=== PATIENT | female | born 1955 | race Hispanic/Latino ===

== ENCOUNTER 2017-11-09 16:09 | Emergency (ER) | payer OTHER ==
[2017-11-09] MEDS ORDERED: ONDANSETRON HCL 4 MG/2 ML VIAL ONE (17:03)
[2017-11-09] MEDS ORDERED: MECLIZINE HCL 25 MG TABLET ONE (17:03)
[2017-11-09 17:21] LABS: BASOPHILS % (AUTO) 0.7 % (0.0-5.0); EOSINOPHILS % (AUTO) 0.3 % (0.0-8.0); HEMATOCRIT 38.8 % (36-48); LYMPHOCYTES % (AUTO) 14.8 % (21.0-51.0); MEAN CORPUSCULAR HEMOGLOBIN 30.3 pg (27.0-33.0); MONOCYTES % (AUTO) 3.8 % (3.0-13.0); NEUTROPHILS % (AUTO) 80.4 % (40.0-77.0); PLATELET COUNT (AUTO) 246 K/uL (130-400); RED BLOOD CELL COUNT(AUTO) 4.36 MIL/uL (4.00-5.50); RED CELL DISTRIBUTION WIDTH 13.1 % (11.0-15.5); WHITE BLOOD COUNT (AUTO) 8.3 K/uL (4.8-10.8)
[2017-11-09 17:26] LABS: INR 0.89 (0.85-1.15); PARTIAL THROMBOPLASTIN TIME 26.2 SEC (26.3-35.5); PROTHROMBIN TIME 9.4 SEC (9.6-11.6)
[2017-11-09 17:38] LABS: CREATININE 0.9 mg/dL (0.5-1.5); POTASSIUM 4.1 mmol/L (3.5-5.1)
[2017-11-09 17:50] LABS: ALBUMIN 3.9 g/dL (3.5-5.0); BILIRUBIN,TOTAL 0.6 mg/dL (0.2-1.0); CREATINE KINASE MB 2.3 ng/mL (0.5-3.6)
[2017-11-09] MEDS ORDERED: KETOROLAC TROMETHAMINE 15MG/ML ONE (18:20)
== END 2017-11-09 19:21 | disposition home or self-care (01) ==
LOC: EDH 16:09
DX: S00.83XA Contusion of other part of head, initial encounter (principal); H81.399 Other peripheral vertigo, unspecified ear; R11.2 Nausea with vomiting, unspecified; Z88.0 Allergy status to penicillin; X58.XXXA Exposure to other specified factors, initial encounter; Y93.89 Activity, other specified; Y92.89 Other specified places as the place of occurrence of the external cause; Y99.8 Other external cause status
CPT/HCPCS: 36415; 80053; 82550; 82553; 83690; 84484; 85025; 85610; 85730; 93005; 96374; 96375; 99285; J1885; J2405

== ENCOUNTER 2022-08-03 21:27 | Inpatient (IN) | payer OTHER ==
[~2022-08-03] VITALS: Ht 162.6 cm; Wt 66.2 kg
[2022-08-03 22:14] LABS: BASOPHILS % (AUTO) 0.8 % (0.0-5.0); EOSINOPHILS % (AUTO) 1.7 % (0.0-8.0); HEMATOCRIT 35.8 % (36-48); LYMPHOCYTES % (AUTO) 13.1 % (21.0-51.0); MEAN CORPUSCULAR HEMOGLOBIN 29.8 pg (27.0-33.0); MEAN CORPUSCULAR VOLUME 90.4 fL (79-99); NEUTROPHILS % (AUTO) 76.7 % (40.0-77.0); PLATELET COUNT (AUTO) 204 K/uL (130-400); RED BLOOD CELL COUNT(AUTO) 3.96 MIL/uL (4.00-5.50); RED CELL DISTRIBUTION WIDTH 13.2 % (11.0-15.5); WHITE BLOOD COUNT (AUTO) 14.6 K/uL (4.8-10.8)
[2022-08-03 22:22] LABS: CREATININE 0.9 mg/dL (0.5-1.5); POTASSIUM 3.5 mmol/L (3.5-5.1)
[2022-08-03] MEDS ORDERED: ONDANSETRON 4MG INJ ONE (22:27)
[2022-08-03] MEDS ORDERED: MORPHINE 4 MG SYG ONE (22:27)
[2022-08-03] MEDS ORDERED: ONDANSETRON 4MG INJ IVP ONE (22:30)
[2022-08-03] MEDS ORDERED: MORPHINE 4 MG SYG IVP ONE (22:30)
[2022-08-03 22:31] LABS: ALBUMIN 3.2 g/dL (3.5-5.0)
[2022-08-03 22:34] LABS: APPEARANCE,URINE CLEAR (CLEAR); BILIRUBIN,URINE NEGATIVE (NEGATIVE); COLOR,URINE LIGHT-YELLOW (YELLOW); GLUCOSE, URINE (UA) NEGATIVE (NEGATIVE); KETONES,URINE NEGATIVE (NEGATIVE); LEUKOCYTE ESTERASE ,URINE NEGATIVE Leu/uL (NEGATIVE); NITRATE,URINE 2+ (NEGATIVE); OCCULT BLOOD,URINE LARGE (NEGATIVE); PROTEIN,URINE NEGATIVE (NEGATIVE); UROBILINOGEN,URINE 0.2 mg/dL (0.2-1.0)
[2022-08-03 22:41] LABS: BACTERIA,URINE MANY /HPF (None Seen); MUCUS,URINE RARE LPF (None Seen); SQUAMOUS EPITHELIAL CELL,UR RARE /HPF (0-2)
[2022-08-04] MEDS: PHARMACY COMMUNICATION MISC SCH ×5 (01:30→17:24)
[2022-08-04] MEDS ORDERED: ACETAMINOPHEN 325 MG TAB PO PRN ×2 (01:30)
[2022-08-04] MEDS ORDERED: ONDANSETRON 4MG INJ IV PRN (01:30)
[2022-08-04] MEDS ORDERED: PHARMACY COMMUNICATION MISC SCH ×2 (03:00→06:30)
[2022-08-04 03:08] VITALS: BP 145/84
[2022-08-04] MEDS: MORPHINE 4 MG SYG IV PRN ×2 (03:37→15:59)
[2022-08-04 05:59] LABS: BASOPHILS % (AUTO) 0.6 % (0.0-5.0); EOSINOPHILS % (AUTO) 0.4 % (0.0-8.0); HEMATOCRIT 35.7 % (36-48); LYMPHOCYTES % (AUTO) 10.6 % (21.0-51.0); MEAN CORPUSCULAR HEMOGLOBIN 29.5 pg (27.0-33.0); MEAN CORPUSCULAR HGB CONC 32.8 g/dL (32.0-36.0); MEAN CORPUSCULAR VOLUME 90.2 fL (79-99); MONOCYTES % (AUTO) 9.9 % (3.0-13.0); PLATELET COUNT (AUTO) 186 K/uL (130-400); RED BLOOD CELL COUNT(AUTO) 3.96 MIL/uL (4.00-5.50); RED CELL DISTRIBUTION WIDTH 13.2 % (11.0-15.5); WHITE BLOOD COUNT (AUTO) 9.9 K/uL (4.8-10.8)
[2022-08-04 06:09] LABS: INR 0.93 (0.85-1.15)
[2022-08-04 06:11] LABS: PARTIAL THROMBOPLASTIN TIME 25.4 SEC (26.3-35.5)
[2022-08-04 06:26] LABS: CREATININE 0.8 mg/dL (0.5-1.5); MAGNESIUM 1.8 mg/dL (1.80-2.40); PHOSPHORUS 3.4 mg/dL (2.5-4.9); POTASSIUM 3.9 mmol/L (3.5-5.1)
[2022-08-04] MEDS: CEFTRIAXONE 1G VIAL IV SCH ×2 (07:48→20:23)
[2022-08-04] MEDS: MORPHINE 2 MG SYG IV PRN (07:49)
[2022-08-04 08:00] VITALS: BP 140/78
[2022-08-04] MEDS: FAMOTIDINE 20MG VIAL IV SCH (08:40)
[2022-08-04] MEDS: ENOXAPARIN SODIUM 40 MG/0.4 ML SYRINGE SQ SCH ×2 (08:40→12:27)
[2022-08-04] MEDS ORDERED: CALCIUM CARB 500MG CHEW TAB ONE (11:30)
[2022-08-04] MEDS ORDERED: CALCIUM CARB 500MG CHEW TAB PO PRN (11:30)
[2022-08-04 16:00] VITALS: BP 156/85
[2022-08-04 20:57] VITALS: BP 130/80
[2022-08-05 00:14] VITALS: BP 130/76
[2022-08-05 04:40] VITALS: BP 130/72
[2022-08-05 04:53] LABS: BASOPHILS % (AUTO) 0.6 % (0.0-5.0); EOSINOPHILS % (AUTO) 1.7 % (0.0-8.0); LYMPHOCYTES % (AUTO) 12.5 % (21.0-51.0); MEAN CORPUSCULAR HEMOGLOBIN 29.4 pg (27.0-33.0); MEAN CORPUSCULAR HGB CONC 32.8 g/dL (32.0-36.0); MEAN CORPUSCULAR VOLUME 89.8 fL (79-99); MONOCYTES % (AUTO) 9.7 % (3.0-13.0); PLATELET COUNT (AUTO) 173 K/uL (130-400); RED BLOOD CELL COUNT(AUTO) 4.01 MIL/uL (4.00-5.50); RED CELL DISTRIBUTION WIDTH 13.2 % (11.0-15.5); WHITE BLOOD COUNT (AUTO) 8.2 K/uL (4.8-10.8)
[2022-08-05 05:04] LABS: CREATININE 0.9 mg/dL (0.5-1.5); POTASSIUM 3.7 mmol/L (3.5-5.1)
[2022-08-05 08:00] VITALS: BP 147/78
[2022-08-05] MEDS: ENOXAPARIN SODIUM 40 MG/0.4 ML SYRINGE SQ SCH (09:04)
[2022-08-05] MEDS: FAMOTIDINE 20MG VIAL IV SCH (09:04)
[2022-08-05] MEDS: HYDROCODONE/ACETAMINOPHEN 5/325 MG TAB PO PRN ×2 (09:04→21:24)
[2022-08-05 12:00] VITALS: BP 131/75
[2022-08-05] MEDS ORDERED: ROSU5TAB12 PO (12:30)
[2022-08-05] MEDS ORDERED: CETI10TA57 PO (12:30)
[2022-08-05] MEDS: CETIRIZINE HCL 5 MG TABLET PO SCH (15:14)
[2022-08-05 16:00] VITALS: BP 141/78
[2022-08-05 20:48] VITALS: BP 131/73
[2022-08-06] VITALS (21 sets, daily range): BP systolic 114–165; BP diastolic 61–89
[2022-08-06] MEDS: HYDROCODONE/ACETAMINOPHEN 5/325 MG TAB PO PRN (02:46)
[2022-08-06 06:00] LABS: HEMATOCRIT 35.8 % (36-48); MEAN CORPUSCULAR HEMOGLOBIN 29.8 pg (27.0-33.0); MEAN CORPUSCULAR HGB CONC 32.7 g/dL (32.0-36.0); MEAN CORPUSCULAR VOLUME 91.1 fL (79-99); RED BLOOD CELL COUNT(AUTO) 3.93 MIL/uL (4.00-5.50); RED CELL DISTRIBUTION WIDTH 13.2 % (11.0-15.5)
[2022-08-06 06:14] LABS: ALBUMIN 3.1 g/dL (3.5-5.0); CREATININE 0.8 mg/dL (0.5-1.5); POTASSIUM 3.7 mmol/L (3.5-5.1); TOTAL PROTEIN, SERUM 6.5 g/dL (6.0-8.3)
[2022-08-06] MEDS: CEFTRIAXONE 1G VIAL IV SCH (06:33)
[2022-08-06] MEDS: ENOXAPARIN SODIUM 40 MG/0.4 ML SYRINGE SQ SCH (08:52)
[2022-08-06] MEDS: CETIRIZINE HCL 5 MG TABLET PO SCH (08:52)
[2022-08-06] MEDS: FAMOTIDINE 20MG VIAL IV SCH (08:59)
[2022-08-06] MEDS ORDERED: NON-FORMULARY MEDICATION 1 EACH (Cetirizine HCl 10 MG) PO SCH (09:00)
[2022-08-06] MEDS ORDERED: SUCCINYLCHOLINE 200MG/10ML SYR ONE (11:33)
[2022-08-06] MEDS ORDERED: LIDOCAINE PF 100MG/5ML (2%) SYRINGE 5ML ONE (11:33)
[2022-08-06] MEDS ORDERED: GLYCOPYRROLATE 1 MG/5 ML SYRINGE ONE ×2 (11:34→21:42)
[2022-08-06] MEDS ORDERED: DEXAMETHASONE SOD PHOSPHATE 10MG/ML 1ML VIAL ONE (11:34)
[2022-08-06] MEDS ORDERED: ONDANSETRON 4MG INJ ONE (11:34)
[2022-08-06] MEDS ORDERED: PROPOFOL 10 MG/ML 20ML VIAL IV ONE (11:34)
[2022-08-06] MEDS ORDERED: FENTANYL CITRATE PF 50 MCG/1 ML 2ML VIAL ONE ×2 (11:35→21:46)
[2022-08-06] MEDS ORDERED: NEOSTIGMINE 5MG/5ML SYR IV ONE ×2 (11:35→21:42)
[2022-08-06] MEDS ORDERED: MIDAZOLAM HCL 1 MG/ML 2ML VIAL ONE (11:35)
[2022-08-06] MEDS ORDERED: ROCURONIUM 10MG/1ML SYR 10 MG/ML ML ONE ×2 (11:35→19:51)
[2022-08-06] MEDS ORDERED: ROPIVACAINE 0.5% 5MG/ML 30ML IJ ONE ×2 (11:38→18:42)
[2022-08-06] MEDS: MORPHINE 2 MG SYG IV PRN (11:57)
[2022-08-06] MEDS ORDERED: LIDOCAINE 2%-EPI 1:200,000 20 ML VIAL IJ ONE (18:44)
[2022-08-06] MEDS ORDERED: FENTANYL CITRATE PF 50 MCG/1 ML 5ML AMP IV ONE (20:06)
[2022-08-06] MEDS ORDERED: EPHEDRINE SULFATE 50 MG/ML AMPULE ONE (21:12)
[2022-08-06] MEDS ORDERED: KETOROLAC 30MG VIAL (30MG/ML) ONE (21:40)
[2022-08-06] MEDS ORDERED: HYDROCODONE/ACETAMINOPHEN 5/325 MG TAB PO PRN (23:30)
[2022-08-07] VITALS (8 sets, daily range): BP systolic 98–140; BP diastolic 60–82
[2022-08-07] MEDS: HYDROCODONE/ACETAMINOPHEN 5/325 MG TAB PO PRN ×3 (02:41→12:47)
[2022-08-07] MEDS: MORPHINE 2 MG SYG IV PRN (04:45)
[2022-08-07 04:58] LABS: HEMATOCRIT 31.1 % (36-48); MEAN CORPUSCULAR HEMOGLOBIN 30.1 pg (27.0-33.0); MEAN CORPUSCULAR HGB CONC 33.4 g/dL (32.0-36.0); MEAN CORPUSCULAR VOLUME 89.9 fL (79-99); RED BLOOD CELL COUNT(AUTO) 3.46 MIL/uL (4.00-5.50); RED CELL DISTRIBUTION WIDTH 13.1 % (11.0-15.5); WHITE BLOOD COUNT (AUTO) 10.8 K/uL (4.8-10.8)
[2022-08-07 05:29] LABS: CREATININE 0.8 mg/dL (0.5-1.5); POTASSIUM 4.2 mmol/L (3.5-5.1)
[2022-08-07] MEDS: FAMOTIDINE 20MG VIAL IV SCH (08:46)
[2022-08-07] MEDS: CETIRIZINE HCL 5 MG TABLET PO SCH (08:46)
[2022-08-07] MEDS: CEFTRIAXONE 1G VIAL IV SCH (08:46)
[2022-08-07] MEDS: ENOXAPARIN SODIUM 40 MG/0.4 ML SYRINGE SQ SCH (08:48)
[2022-08-07] MEDS: MORPHINE 4 MG SYG IVP PRN ×2 (09:47→16:53)
[2022-08-08] VITALS (7 sets, daily range): BP systolic 126–158; BP diastolic 68–84
[2022-08-08 04:42] LABS: HEMATOCRIT 30.3 % (36-48); MEAN CORPUSCULAR HEMOGLOBIN 29.7 pg (27.0-33.0); MEAN CORPUSCULAR HGB CONC 32.7 g/dL (32.0-36.0); RED BLOOD CELL COUNT(AUTO) 3.33 MIL/uL (4.00-5.50); RED CELL DISTRIBUTION WIDTH 13.1 % (11.0-15.5); WHITE BLOOD COUNT (AUTO) 10.8 K/uL (4.8-10.8)
[2022-08-08 05:04] LABS: CREATININE 0.8 mg/dL (0.5-1.5); POTASSIUM 3.8 mmol/L (3.5-5.1)
[2022-08-08] MEDS: CEFTRIAXONE 1G VIAL IV SCH ×2 (07:08→08:26)
[2022-08-08] MEDS: CETIRIZINE HCL 5 MG TABLET PO SCH (08:18)
[2022-08-08] MEDS: FAMOTIDINE 20MG VIAL IV SCH (08:18)
[2022-08-08] MEDS: HYDROCODONE/ACETAMINOPHEN 5/325 MG TAB PO PRN ×2 (08:26→14:16)
[2022-08-08] MEDS: RIVAROXABAN 10 MG TABLET PO SCH (11:45)
[2022-08-08] MEDS: MORPHINE 4 MG SYG IVP PRN (13:31)
[2022-08-08] MEDS ORDERED: MAGNESIUM HYDROXIDE 30 ML/UDCUP ONE (14:23)
[2022-08-08] MEDS ORDERED: KETOROLAC 15MG/ML VIAL (15MG/ML) IM PRN (14:30)
[2022-08-08] MEDS: MAGNESIUM HYDROXIDE 30 ML/UDCUP PO SCH ×3 (14:34→19:28)
[2022-08-09 03:26] VITALS: BP 124/68
[2022-08-09 07:20] VITALS: BP 113/72
[2022-08-09] MEDS: HYDROCODONE/ACETAMINOPHEN 5/325 MG TAB PO PRN ×2 (07:47→17:05)
[2022-08-09 07:52] LABS: HEMATOCRIT 29.2 % (36-48); MEAN CORPUSCULAR HEMOGLOBIN 29.9 pg (27.0-33.0); MEAN CORPUSCULAR HGB CONC 32.2 g/dL (32.0-36.0); RED BLOOD CELL COUNT(AUTO) 3.14 MIL/uL (4.00-5.50); RED CELL DISTRIBUTION WIDTH 13.2 % (11.0-15.5); WHITE BLOOD COUNT (AUTO) 10.3 K/uL (4.8-10.8)
[2022-08-09 08:32] LABS: CREATININE 0.8 mg/dL (0.5-1.5); POTASSIUM 4.2 mmol/L (3.5-5.1)
[2022-08-09] MEDS ORDERED: BISACODYL 5 MG TABLET.DR PO PRN (09:30)
[2022-08-09] MEDS ORDERED: LACTULOSE 20 GM/30 ML UDCUP PO PRN (09:30)
[2022-08-09] MEDS: FAMOTIDINE 20MG VIAL IV SCH (10:12)
[2022-08-09] MEDS: MAGNESIUM HYDROXIDE 30 ML/UDCUP PO SCH ×4 (10:12→17:00)
[2022-08-09] MEDS: RIVAROXABAN 10 MG TABLET PO SCH (10:12)
[2022-08-09] MEDS: CETIRIZINE HCL 5 MG TABLET PO SCH (10:13)
[2022-08-09] MEDS: CEFTRIAXONE 1G VIAL IV SCH (10:15)
[2022-08-09 11:20] VITALS: BP 126/73
[2022-08-09 15:20] VITALS: BP 121/70
[2022-08-09 20:08] VITALS: BP 112/63
== END 2022-08-09 21:15 | DRG 480 ==
LOC: EDH 21:27 → EDHIP 08-04 01:10 → 4BH 08-04 02:45
PROVIDERS: ADMIT Internal Medicine; ATTEND Internal Medicine
PROC: 0QS704Z Reposition Left Upper Femur with Internal Fixation Device, Open Approach (ICD-10-PCS; principal; 2022-08-06 19:52)
PROC: 0QSD04Z Reposition Right Patella with Internal Fixation Device, Open Approach (ICD-10-PCS; 2022-08-06 19:52)
DX: S82.001A Unspecified fracture of right patella, initial encounter for closed fracture (principal); S72.142A Displaced intertrochanteric fracture of left femur, initial encounter for closed fracture; N39.0 Urinary tract infection, site not specified; W01.0XXA Fall on same level from slipping, tripping and stumbling without subsequent striking against object, initial encounter; B96.20 Unspecified Escherichia coli [E. coli] as the cause of diseases classified elsewhere; I10 Essential (primary) hypertension; M21.70 Unequal limb length (acquired), unspecified site; M81.0 Age-related osteoporosis without current pathological fracture; Z51.5 Encounter for palliative care; Z88.0 Allergy status to penicillin; Z79.01 Long term (current) use of anticoagulants; Y93.89 Activity, other specified; Y92.89 Other specified places as the place of occurrence of the external cause; Y99.8 Other external cause status
CPT/HCPCS: 36415; 71045; 73502; 73503; 73560; 73562; 80048; 80053; 81001; 82040; 83735; 84100; 84155; 84484; 85025; 85027; 85610; 85730; 86850; 86900; 86901; 87040; 87077; 87088; 87186; 87635; 93005; 97039; C9803; G0378; J0330; J0696; J1100; J1650; J1885; J2001; J2250; J2270; J2405; J2704; J2710; J2795; J3010; J3490